=== PATIENT | male | born 1955 | race Caucasian/White ===

== ENCOUNTER 2025-05-18 15:22 | Outpatient (CLI) | payer MEDICARE, SELFPAY ==
--- NOTE | ~2025-05-18 | MR_ITS ---
MRI of the left shoulder Technique: Axial proton-density fat-sat images, coronal proton density fat-sat and T2 fat-sat images, and sagittal T1-weighted and T2 fat-sat images were acquired. Clinical History: Pain Findings: No prior subacromial decompression and possible partial resection of distal clavicle. Corac oclavicular, coracoacromial, and coracohumeral ligaments appear intact. Evidence of prior presumed rotator cuff repair surgery with susceptibility artifact at the greater tu berosity humerus. There are, full-thickness tears involving the entirety of the supraspinatus and inf raspinatus tendons. Subscapularis tendon intact with severe tendinosis. There is complete rupture of the proximal long head biceps tendon which is retracted into the bicipital groove. No discrete labral tear clearly identified. Humeral head is high riding. Small left medial humeral head osteophyte present. Inferior glenohumeral ligament is intact. There is moderate glenohumeral joint effusion with fluid passing through the rot ator cuff defect into the subacromial/subdeltoid bursa. There is mild edematous change of the suprasp inatus and infraspinatus muscle bellies with possible early fatty infiltration. Impression: Probable prior rotator cuff repair surgery. Complete full-thickness recurrent tears involving the ent irety of the supraspinatus and infraspinatus tendons. Mild edematous change of the supraspinatus and infraspinatus muscle bellies of possible mild fatty infiltrative change. Complete rupture of the proximal long head biceps tendon. Probable prior subacromial decompression. Moderate glenohumeral joint effusion with fluid distention of the subscapularis recess. Mild glenohumeral joint degenerative change. Reviewed, dictated and finalized at [facility]. Impression: Probable prior rotator cuff repair surgery. Complete full-thickness recurrent t ears involving the entirety of the supraspinatus and infraspinatus tendons. Mil d edematous change of the supraspinatus and infraspinatus muscle bellies of pos sible mild fatty infiltrative change. Complete rupture of the proximal long head biceps tendon. Probable prior subacromial decompression. Moderate glenohumeral joint effusion with fluid distention of the subscapularis recess. Mild glenohumeral joint degenerative change.
== END 2025-05-18 15:23 | disposition home or self-care (01) ==
PROVIDERS: Visit Provider Physician Assistant
DX: S46.822A Laceration of other muscles, fascia and tendons at shoulder and upper arm level, left arm, initial encounter (principal); S46.112A Strain of muscle, fascia and tendon of long head of biceps, left arm, initial encounter; X58.XXXA Exposure to other specified factors, initial encounter; R60.9 Edema, unspecified; M19.012 Primary osteoarthritis, left shoulder
CPT/HCPCS: 73221